=== PATIENT | male | born 1955 | race Caucasian/White ===

== ENCOUNTER 2022-12-24 16:52 | Inpatient (IN) | payer MEDICARE, MEDICAID ==
[2022-12-23 23:29] VITALS: BP 119/57
[~2022-12-24] VITALS: Ht 165.1 cm; Wt 124.7 kg
[2022-12-24] MEDS ORDERED: cefTRIAXone 1,000 MG in DEXT 5% MINI-BAG PLUS 50 ML IV ONE (17:00)
[2022-12-24 17:01] VITALS: BP 143/76
[2022-12-24 17:10] VITALS: BP 143/76
[2022-12-24] MEDS ORDERED: ATOR80TA27 PO (17:38)
[2022-12-24] MEDS ORDERED: ALLO100T21 PO (17:38)
[2022-12-24] MEDS ORDERED: FURO-570 PO (17:38)
[2022-12-24] MEDS ORDERED: SEVE800T6 PO (17:38)
[2022-12-24] MEDS ORDERED: MECL-303 PO (17:38)
[2022-12-24] MEDS ORDERED: ASPI-1749 PO (17:38)
[2022-12-24] MEDS ORDERED: EZET10TA14 PO (17:38)
[2022-12-24] MEDS ORDERED: CARV3.12 PO (17:38)
--- NOTE | 2022-12-24 19:00 | NUR ---
RN at bedside for PICC line placement.
--- NOTE | 2022-12-24 19:37 | NUR ---
RAD at bedside for imaging s/p picc line placement.
--- NOTE | 2022-12-24 20:01 | NUR ---
Picc line report given to MD Zelaya. Placement confirmed.
[2022-12-24] MEDS ORDERED: cefTRIAXone 1,000 MG VIAL ONE (20:32)
[2022-12-24 20:38] LABS: BASOPHILS % (AUTO) 0.3 % (0.0-2.0); EOSINOPHILS # (AUTO) 0.2 K/uL (0-0.4); EOSINOPHILS % (AUTO) 2.4 % (0.0-4.0); HEMATOCRIT 31.4 % (36-52); LYMPHOCYTES # (AUTO) 0.3 K/uL (2.0-11.5); LYMPHOCYTES % (AUTO) 3.1 % (20.5-51.1); MEAN CORPUSCULAR HEMOGLOBIN 30 pg (27-31); MEAN CORPUSCULAR HGB CONC 32 g/dL (33-37); MEAN CORPUSCULAR VOLUME 92.6 fL (80-94); MONOCYTES # (AUTO) 0.6 K/uL (0.8-1.0); MONOCYTES % (AUTO) 5.4 % (1.7-9.3); NEUTROPHILS # (AUTO) 9.1 K/uL (1.8-7.7); NEUTROPHILS % (AUTO) 88.8 % (42.2-75.2); PLATELET COUNT (AUTO) 242 K/uL (140-450); RED BLOOD CELL COUNT(AUTO) 3.39 MIL/uL (4.20-6.10); RED CELL DISTRIBUTION WIDTH 17.9 % (11.6-13.7); WHITE BLOOD COUNT (AUTO) 10.2 K/uL (4.8-10.8)
[2022-12-24 20:53] LABS: ALBUMIN 2.5 g/dL (3.4-5.0); ANION GAP 12.7 (8-16); CARBON DIOXIDE 25.1 mmol/L (21-32); TOTAL BILIRUBIN 0.4 mg/dL (0.0-1.0)
--- NOTE | 2022-12-24 20:53 | NUR ---
MD Zelaya made aware of elevated HR; to see pt.
[2022-12-24 20:59] LABS: POTASSIUM 2.8 mmol/L (3.5-5.1)
--- NOTE | 2022-12-24 21:09 | NUR ---
2100 DR CARBALLO ASKED ME TO TAKE PT OFF BIPAP. PLACED PT ON 2LNC. SATS DROPPED. PLACED PT ON 6L FACE MASK. SATS IMPROVED BUT PT STATED HE FELT SOB. DR CARBALLO SAID TO PLCE PT BACK ON BIPAP. SAME SETTINGS.
[2022-12-24 23:15] VITALS: BP 123/63
[2022-12-24] MEDS ORDERED: POTASSIUM CHLORIDE 10 MEQ TABER PO PRN (23:20)
[2022-12-24] MEDS ORDERED: ACETAMINOPHEN 325 MG TAB PO PRN (23:20)
[2022-12-24] MEDS ORDERED: ONDANSETRON 4 MG/2 ML VIAL IM/IVP PRN (23:20)
[2022-12-24] MEDS ORDERED: DOCUSATE SODIUM 100 MG GELCAP PO PRN (23:20)
[2022-12-24] MEDS ORDERED: ZOLPIDEM 5 MG TAB PO PRN (23:20)
[2022-12-24] MEDS ORDERED: guaiFENesin DM 200/20 MG-10 ML 10 ML UDC PO PRN (23:20)
[2022-12-24] MEDS ORDERED: HYDROcodone/APAP 7.5/325 MG 1 TAB PO PRN (23:20)
--- NOTE | 2022-12-24 23:26 | NUR ---
2311 TRANSPORTED PT ON BIPAP TO ROOM 118. PT IS ON IPAP 14 EPAP 7 RR 16 FIO2 45%. PT UNDERSTANDS TO KEEP MASK ON.
--- NOTE | 2022-12-24 23:29 | NUR ---
[facility] ER NURSE PER TRANSFER REPORT@ 2300 VIA PHONE. REPORTED:57 YO MALE WITH SOB DURING HEMODIALYSIS. DX: SOB AND PULMONARY EDEMA. HX: COPD, DM, HTN, KIDNEY DISEASE. ADMIT TO TELE PER MD [facility]ATE SERVICES. SINUS TACH 120'S -130'S, ASYMPTOMATIC, MD AWARE. BIPAP WITH ATTEMPT TO TRANSFER TO NASAL CANNULA 6L. PT DESATTED AND SOB. BIPAP MAINTAINED. SETTINGS: RATE 16, FI02 45, IPAP 14, EPAP 7. HD SATURDAY AND SATURDAY WITH RIGHT UPPER CHEST ACCESS. LASHONDA PICC PLACED, CONFIRMED AND SL. K=2.8 AND 1ST TROPONIN=25 AND 2ND TROP PENDING, AWARE. SKIN INTACT. NON PITTING EDEMA 2+ BILAT LOWER EXTREMITIES. DENIES PAIN. RECEIVED AT THIS TIME VIA GURNEY FROM ER WITH RESPIRATORY ACCOMPANYING ER TRANSPORT, BIPAP MAINTAINED. VS 97.1-65-20-119/57 98% ON BIPAP. PT RECEIVED REPORTED. RELAXED, A/0X4. "CAN SOMEONE LET MY KNOW I AM HERE." VERIFIED ALLERGIES, LATEX AND NSAIDS. CONT TO MONITOR.
--- NOTE | 2022-12-24 23:29 | NUR ---
BED HAS NO WORKING SCALE Addendum: 12/25/22 at 0737 by Agency 08 RN RN Amended: Links added.
[2022-12-24 23:47] LABS: PROTHROMBIN TIME 10.8 secs (10.8-13.4)
[2022-12-25 00:13] LABS: CHOL/HDL RATIO 1.3 (1-4.5); MAGNESIUM 1.9 mg/dL (1.8-2.4)
[2022-12-25 00:14] LABS: FREE T4 (FREE THYROXINE) 1.18 ng/dL (0.76-1.46); THYROID STIMULATING HORMONE 2.78 uIU/mL (0.34-3.74)
--- NOTE | 2022-12-25 01:30 | NUR ---
NOTIFIED OF CARDIAC RHYTHM CHANGE FROM ST TO UNCONTROLLED AFIB/AFLUTTER 107/120'S. REMAINS ASYMPTOMATIC. MRSA SCREEN COLLECTED. PHONED AND SPOKE WITH PT UPON ARRIVAL TO FLOOR.
[2022-12-25 04:00] VITALS: BP 128/62
--- NOTE | 2022-12-25 07:30 | NUR ---
HAND-OFF REPORT TO GREGORY READ AM ON-COMING NURSE FOR CONTINUITY OF CARE. PT REMAINS SAME. ON BIPAP WITH NO CHANGE IN SETTINGS. TOLERATING WELL. CONTINUES UNCONTROLLED AFIB/AFLUTTER ON TEAMSITE DEVELOPER, ASYMPTOMATIC. NO RESPIRATORY DISTRESS. CONTINUES TO DENY PAIN OR ANY DISCOMFORT. LASHONDA PICC LINE DOUBLE LUMEN PATENT WITH A.M LABS BLOOD DRAW TAKEN FROM LINE. RELINQUISHED CARE OF PT AT THIS TIME.
--- NOTE | 2022-12-25 07:31 | NUR ---
RECEIVED REPORT FROM NIGHTSHIFT NURSE. PT IS ASLEEP IN BED, WOKE TO NAME AND TOUCH. NO SIGNS OF DISTRESS, NO REPORTS OF PAIN/DISCOMFORT. PT ON BIPAP. DOUBLE LUMEN PICC LINE TO RIGHT UPPER ARM, DIALYSIS CATH IN RIGHT UPPER CHEST, BOTH CLEAN AND INTACT. NO FURTHER NEEDS ARE TO BE MET AT THIS TIME, WILL CONTINUE WITH PATIENT CARE. REORIENTED PT TO CALL LIGHT. BED IN LOWEST POSITION, 2 SIDE RAILS UP, CALL LIGHT PLACED WITHIN REACH.
[2022-12-25 07:35] LABS: EOSINOPHILS # (AUTO) 0.3 K/uL (0-0.4); HEMOGLOBIN 9.2 g/dL (12.0-18.0); LYMPHOCYTES # (AUTO) 1.3 K/uL (2.0-11.5); LYMPHOCYTES % (AUTO) 7.9 % (20.5-51.1); MEAN CORPUSCULAR HEMOGLOBIN 30 pg (27-31); RED BLOOD CELL COUNT(AUTO) 3.08 MIL/uL (4.20-6.10); RED CELL DISTRIBUTION WIDTH 17.6 % (11.6-13.7)
[2022-12-25 07:43] LABS: BASOPHILS % (AUTO) 0.2 % (0.0-2.0); EOSINOPHILS % (AUTO) 1.9 % (0.0-4.0); HEMATOCRIT 28.8 % (36-52); MEAN CORPUSCULAR HGB CONC 32 g/dL (33-37); MEAN CORPUSCULAR VOLUME 93.6 fL (80-94); MONOCYTES # (AUTO) 1.7 K/uL (0.8-1.0); MONOCYTES % (AUTO) 10.2 % (1.7-9.3); NEUTROPHILS # (AUTO) 13.5 K/uL (1.8-7.7); NEUTROPHILS % (AUTO) 79.8 % (42.2-75.2); PLATELET COUNT (AUTO) 237 K/uL (140-450); WHITE BLOOD COUNT (AUTO) 16.9 K/uL (4.8-10.8)
[2022-12-25 08:00] VITALS: BP 105/45
[2022-12-25 08:04] LABS: ANION GAP 14.6 (8-16); CARBON DIOXIDE 23.5 mmol/L (21-32); CREATININE 3.3 mg/dL (0.6-1.3); POTASSIUM 4.1 mmol/L (3.5-5.1)
--- NOTE | 2022-12-25 09:04 | NUR ---
PATIENT HAS BEEN SCREENED AND CATEGORIZED MODERATE NUTRITION RISK. PATIENT WILL BE SEEN WITHIN 3-5 DAYS OF ADMISSION. 12/28/22-12/30/[address] Addendum: 12/25/22 at [address] [facility] CONSULT RECEIVED ON 12/25/22 FOR UNCONTROLLED DIABETES, RENAL DIET . CONSULT DOES NOT MEET HIGH RISK CRITERIA PER HOSPITAL POLICY. PT WILL BE SEEN AND ASSESSED ACCORDING TO THE NUTRITION CARE POLICY. REVIEWED BY VILMA LAZAR RD
[2022-12-25] MEDS: PANTOPRAZOLE 40 MG TABEC PO SCH (09:29)
[2022-12-25] MEDS ORDERED: EPOETIN ALFA-EPBX 4,000 UNITS/ML VIAL IV PRN (10:45)
--- NOTE | 2022-12-25 11:35 | NUR ---
DC PLANNING ASSESSMENT COMPLETE PLEASE REFER TO ASSESSMENT FOR ADDITIONAL DETAILS TENTATIVE DC PLAN IS FOR PT TO RETURN HOME, WITH PARTNER PROVIDING TRANSPORTATION, WHEN MEDICALLY STABLE. SW SPOKE TO PT ABOUT [facility] TRANSFER, HOWEVER, REPORTED THAT CM WOULD NOTIFY HIM OF OPEN BEDS OR WHEN [facility] HAS ACCEPTED. PT VERBALIZED UNDERSTANDING AND REPORTS HE UNDERSTAND PROCESS. Addendum: 12/26/22 at 0845 by Reji BRIONES Amended: Links added.
[2022-12-25 12:00] VITALS: BP 115/56
--- NOTE | 2022-12-25 12:30 | NUR ---
OBTAINED ORDER FROM MD FOR DIALYSIS TODAY. OBTAINED CONSENT FROM PT AND MD. PT WITH DIALYSIS NURSE AT BEDSIDE. VITAL SIGNS ARE STABLE, PT STARTED DIALYSIS @ 1226. WILL CONTINUE WITH CARE.
[2022-12-25] MEDS: SODIUM PHOS / POTASSIUM PHOS 1 PKT PDR PO SCH ×2 (13:29→17:32)
--- NOTE | 2022-12-25 15:30 | NUR ---
PT DONE WITH DIALYSIS, 2.1L OUT. PT VITALS STABLE, REPORTS FEELING BETTER. RT WILL BE CONTACTED TO ASSESS PT BREATHING IN HOPES TO CHANGE PT FROM BIPAP TO CPAP OR HIGHFLOW O2.
[2022-12-25 16:00] VITALS: BP 130/59
--- NOTE | 2022-12-25 16:25 | NUR ---
RN CALLED STATED PT IS REQUESTING TO COME OFF BIPAP HE GOT DIALYSIS AND FEELS BETTER. RT ASSESSED PT AND PUT PT ON 6L GREEN BUBBLER NC. HE IS HAVING NO DISTRESS NOTED. HR 87 SPO2 95%. WILL CONTINUE TO MONITOR AND PT IS REQUESTING TO USE CPAP AT NIGHT LIKE HE DOES AT HOME. CPAP OF 14. HE SAYS IT IS EASIER THAN BIPAP. WILL GIVE DURING REPORT.
--- NOTE | 2022-12-25 19:00 | NUR ---
PT CHANGED FROM BIPAP TO NC @1530 WITH RT. ENDORSED PT TO NIGHTSHIFT NURSE FOR CONTINUITY OF CARE. PT IS AWAKE, STABLE, NO SIGNS OF DISTRESS, NO REPORTS OF PAIN. AT BEDSIDE. NO FURTHER NEEDS ARE TO BE MET AT THIS TIME. BED IN LOWEST POSITION, 2 SIDE RAILS UP, CALL LIGHT PLACED WITHIN REACH.
--- NOTE | 2022-12-25 19:10 | NUR ---
RECEIVED PT FROM MORNING SHIFT NURSE. PT IS AOX4, AMBULATORY WITH WALKER AND ASSIST, ABLE TO VERBALIZE NEEDS AND ABLE TO FOLLOW COMMANDS. PT HAS 6L NC AND ON REGULAR DIET. PT HAS PIC LINE ON RIGHT UPPER ARM DOUBLE LUMEN SALINE LOCK AND PT HAS DIALYSIS ACCESS ON RIGHT UPPER CHEST. PT SKIN IS INTACT. NO COMPLAIN OF PAIN AT THIS TIME ON S/S OF RESPIRATORY DISTRESS NOTED. ALL SAFETY PRECAUTION IMPLEMENTED. BED IN LOW POSITION, BED WHEELS ON LOCK AND CALL LIGHT WITHIN REACH.
[2022-12-25 20:00] VITALS: BP 106/67
--- NOTE | 2022-12-25 20:26 | NUR ---
SCHEDULED AND PRESCRIBED MEDICATION WAS GIVEN TO PT PER MD ORDER. ALL SAFETY PRECAUTION IMPLEMENTED. BED IN LOW POSITION, BED WHEELS ON LOCK AND CALL LIGHT WITHIN REACH.
--- NOTE | 2022-12-25 22:19 | NUR ---
CALLED RT PER PT REQUEST.
--- NOTE | 2022-12-25 22:20 | NUR ---
PLACED ON CPAP PER PT REQUEST, PT STATES HE USES A CPAP OF 14 AT HOME AT NIGHT. PT IS ON CPAP OF 14 AND 45% FIO2. NO DISTRESS NOTED, SPO2 99%, WILL CONTINUE TO MONITOR.
[2022-12-26] VITALS: BP 103/46
--- NOTE | 2022-12-26 | NUR ---
PT IS ON SLEEP. CHEST RISE AND FALL SYMMETRICALLY NOTED. RESPIRATION IS EVEN AND UNLABORED. ALL SAFETY AND SEIZURE PRECAUTION IMPLEMENTED. BED IN LOW POSITION, BED WHEELS ON LOCK AND CALL LIGHT WITHIN REACH.
--- NOTE | 2022-12-26 02:00 | NUR ---
CHECKED THE PT, STILL ON SLEEP. CHEST RISE AND FALL SYMMETRICALLY NOTED. RESPIRATION IS EVEN AND UNLABORED. ALL SAFETY PRECAUTION IMPLEMENTED. BED IN LOW POSITION, BED WHEELS ON LOCK AND CALL LIGHT WITHIN REACH.
[2022-12-26 04:00] VITALS: BP 103/46
--- NOTE | 2022-12-26 04:00 | NUR ---
PT WAS GIVEN WARM BLANKET PER PT REQUEST. PT DENIES PAIN. NO S/S OF RESPIRATORY DISTRESS NOTED. ALL SAFETY MEASURES IMPLEMENTED. BED IN LOW POSITION, BED WHEELS ON LOCK AND CALL LIGHT WITHIN REACH.
[2022-12-26 07:15] LABS: BASOPHILS # (AUTO) 0.1 K/uL (0.00-0.22); BASOPHILS % (AUTO) 0.6 % (0.0-2.0); EOSINOPHILS # (AUTO) 0.5 K/uL (0-0.4); EOSINOPHILS % (AUTO) 4.3 % (0.0-4.0); HEMATOCRIT 27.6 % (36-52); HEMOGLOBIN 8.9 g/dL (12.0-18.0); LYMPHOCYTES # (AUTO) 1.2 K/uL (2.0-11.5); LYMPHOCYTES % (AUTO) 11.5 % (20.5-51.1); MEAN CORPUSCULAR HEMOGLOBIN 30 pg (27-31); MEAN CORPUSCULAR HGB CONC 32 g/dL (33-37); MEAN CORPUSCULAR VOLUME 93.4 fL (80-94); MONOCYTES # (AUTO) 1.1 K/uL (0.8-1.0); MONOCYTES % (AUTO) 10.8 % (1.7-9.3); NEUTROPHILS # (AUTO) 7.7 K/uL (1.8-7.7); NEUTROPHILS % (AUTO) 72.8 % (42.2-75.2); PLATELET COUNT (AUTO) 263 K/uL (140-450); RED BLOOD CELL COUNT(AUTO) 2.95 MIL/uL (4.20-6.10); RED CELL DISTRIBUTION WIDTH 18.1 % (11.6-13.7); WHITE BLOOD COUNT (AUTO) 10.6 K/uL (4.8-10.8)
[2022-12-26 07:23] LABS: ANION GAP 13.3 (8-16); CARBON DIOXIDE 23.7 mmol/L (21-32); CREATININE 3.6 mg/dL (0.6-1.3)
--- NOTE | 2022-12-26 07:27 | NUR ---
PT IS STABLE. ENDORSED PT TO MORNING SHIFT NURSE FOR CONTINUITY OF CARE.
--- NOTE | 2022-12-26 07:28 | NUR ---
RECEIVED REPORT FROM FINISH FILER NURSE. PATIENT LYING DOWN IN BED, ON CPAP MACHINE, SLEEPING, AROUSABLE BY VOICE. NO DISTRESS NOTED. LASHONDA PICC LINE INTACT, ON SALINE LOCK. SKIN INTACT. REVIEWED PLAN OF CARE WITH PATIENT. VERBALIZED UNDERSTANDING. SAFETY MEASURES IN PLACE, CALL LIGHT WITHIN REACH. WILL CONTINUE TO MONITOR.
[2022-12-26 08:00] VITALS: BP 125/50
[2022-12-26 08:08] LABS: T4 (THYROXINE) 7.5 ug/dL (4.5-12.0)
[2022-12-26] MEDS ORDERED: DEXTROSE 50% 50 ML SYR IVP PRN (08:15)
--- NOTE | 2022-12-26 08:25 | NUR ---
REMOVED FROM CPAP TO MASK AND PLACED ON SUPPLEMENTAL OXYGEN AT 6 LPM VIA NC BY PRINCESS/TEDDY READ
[2022-12-26] MEDS ORDERED: INSU500S1 SQ ×2 (08:34)
[2022-12-26] MEDS ORDERED: FUROSEMIDE 40 MG/5 ML ORAL SOL UDC GT SCH (09:00)
[2022-12-26] MEDS ORDERED: FUROSEMIDE 40 MG TAB PO SCH (09:00)
[2022-12-26] MEDS: PANTOPRAZOLE 40 MG TABEC PO SCH (09:47)
[2022-12-26] MEDS: ECOTRIN 81 MG TABEC PO SCH (09:48)
[2022-12-26] MEDS: SODIUM PHOS / POTASSIUM PHOS 1 PKT PDR PO SCH ×3 (09:48→17:44)
[2022-12-26] MEDS: ATORVASTATIN 80 MG TAB PO SCH (09:48)
--- NOTE | 2022-12-26 09:48 | NUR ---
RECEIVED ON SUPPLEMENTAL OXYGEN AT 6 LPM VIA CURAPLEX NC/BUBBLE HUMIDIFIER SATURATION 100%; TITRATED FIO2 TO 4 LPM; PRINCESS/TEDDY RN AT BEDSIDE AND AWARE; MEETING MANAGER TO MONITOR AND TITRATED FIO2 TOLERATED
[2022-12-26] MEDS: FUROSEMIDE 40 MG TAB PO SCH ×2 (09:50→17:43)
--- NOTE | 2022-12-26 09:59 | NUR ---
SCHEDULED MEDS GIVEN. WILL CONTINUE TO MONITOR.
[2022-12-26] MEDS ORDERED: INSULIN LANTUS 100 UNITS/ML 10 ML VIAL SUBQ SCH ×2 (10:00→13:02)
[2022-12-26] MEDS: BLOOD GLUCOSE MONITORING 1 DEV DEV FS SCH ×3 (11:30→21:00)
[2022-12-26 12:00] VITALS: BP 126/69
[2022-12-26] MEDS: INSULIN LISPRO SLIDING SCALE 100 UNITS/ML VIAL SUBQ PRN ×2 (13:29→17:45)
--- NOTE | 2022-12-26 13:31 | NUR ---
SCHEDULED MEDICATIONS DUE GIVEN. WILL CONTINUE TO MONITOR.
--- NOTE | 2022-12-26 13:37 | NUR ---
GLUCOSE 409, LANTUS 10 UNITS, LISPRO [address] PATE ORDERS.
--- NOTE | 2022-12-26 13:43 | NUR ---
DC PLANNING: CM CALLED [facility] [phone] SPOKE WITH EDDIE STATED THEY RECEIVED THE ORDER FOR STABLE FOR TRANSFER AND GREGORY IS THE CM CURRENTLY WORKING ON TRANSFERRING TO [facility]. CM TO FOLLOW
[2022-12-26 16:00] VITALS: BP 130/59
[2022-12-26] MEDS ORDERED: ALTEPLASE 2 MG VIAL MC SCH (17:30)
--- NOTE | 2022-12-26 17:53 | NUR ---
SCHEDULED MEDICATIONS DUE GIVEN. WILL CONTINUE TO MONITOR.
--- NOTE | 2022-12-26 18:00 | NUR ---
HD NURSE AT BEDSIDE, SAYS "RIGHT TUNNEL CATHETER IS CLOGGED." HD NURSE TALKED TO DR. JACKSON, PER MD GIVE CATH FLOW X2 TO EACH LUMEN CATHETER. CATH FLOW GIVEN PER MD ORDER. HD NURSE WILL COME BACK TOMORROW TO REASSESS THE HD SITE.
[2022-12-26 20:00] VITALS: BP 163/80
--- NOTE | 2022-12-26 20:15 | NUR ---
NURSING PM NARRATIVE (OPENING) 1929 HAND-OFF REPORT RECEIVED FROM PRINCESS LOVE. ENDORSED: NO HD TODAY. CATHETER CLOGGED. ALTEPASE GIVEN BY HD NURSE. TRY AGAIN TO ACCESS TOMORROW. PT RECEIVED RESTINIG IN BED WITHOUT C/O. O2 6L/NC AND MAY HAVE CPAP AT NIGHT PRN. POSS D/C TOMORROW. KAYDEN PT. PLAN: MEDS SCHEDULED AND COMFORT MEASURES.
[2022-12-27] VITALS (8 sets, daily range): BP systolic 119–163; BP diastolic 57–98
[2022-12-27] MEDS: INSULIN LISPRO SLIDING SCALE 100 UNITS/ML VIAL SUBQ PRN ×5 (00:30→20:09)
[2022-12-27 01:38] LABS: APPEARANCE,URINE CLEAR (CLEAR); BILIRUBIN,URINE 1+ (NEGATIVE); BLOOD, URINE NEGATIVE (NEGATIVE); COLOR,URINE YELLOW (YELLOW); LEUKOCYTE ESTERASE ,URINE NEGATIVE (NEGATIVE); NITRITE, URINE NEGATIVE (NEGATIVE); UGLUCOSE 1+ (NEGATIVE)
[2022-12-27 02:43] LABS: BARBITURATE, URINE NEGATIVE ng/ml (NEG <=200); BENZODIAZEPINE, URINE NEGATIVE ng/mL (NEG <=200); CANNABINOID, URINE NEGATIVE ng/mL (NEG <=50); COCAINE, URINE NEGATIVE ng/mL (NEG <=300); OPIATE, URINE POSITIVE ng/mL (NEG <=2000); PHENCYCLIDINE SCREEN,URINE NEGATIVE ng/mL (NEG <=25)
[2022-12-27 07:10] LABS: BASOPHILS # (AUTO) 0.1 K/uL (0.00-0.22); BASOPHILS % (AUTO) 0.5 % (0.0-2.0); EOSINOPHILS # (AUTO) 0.4 K/uL (0-0.4); EOSINOPHILS % (AUTO) 4.2 % (0.0-4.0); HEMATOCRIT 26.8 % (36-52); HEMOGLOBIN 8.8 g/dL (12.0-18.0); LYMPHOCYTES # (AUTO) 1.2 K/uL (2.0-11.5); LYMPHOCYTES % (AUTO) 11.5 % (20.5-51.1); MEAN CORPUSCULAR HEMOGLOBIN 30 pg (27-31); MEAN CORPUSCULAR HGB CONC 33 g/dL (33-37); MEAN CORPUSCULAR VOLUME 91.7 fL (80-94); MONOCYTES # (AUTO) 0.9 K/uL (0.8-1.0); MONOCYTES % (AUTO) 9.4 % (1.7-9.3); NEUTROPHILS # (AUTO) 7.5 K/uL (1.8-7.7); NEUTROPHILS % (AUTO) 74.4 % (42.2-75.2); PLATELET COUNT (AUTO) 269 K/uL (140-450); RED BLOOD CELL COUNT(AUTO) 2.92 MIL/uL (4.20-6.10); RED CELL DISTRIBUTION WIDTH 17.7 % (11.6-13.7)
[2022-12-27 07:28] LABS: ANION GAP 14.8 (8-16); CARBON DIOXIDE 22.9 mmol/L (21-32); CREATININE 3.8 mg/dL (0.6-1.3); POTASSIUM 3.7 mmol/L (3.5-5.1)
--- NOTE | 2022-12-27 07:30 | NUR ---
0730 PM NURSING NARRATIVE (CLOSING) HAND-OFF REPORT TO VAMSI READ ON-COMING NURSE FOR CONTINUITY OF CARE AND BEDSIDE ROUNDS FOLLOWING WITH INTRODUCTION OF NEW NURSE TO PT. PT CONTINUES WITH BIPAP MASK ON. ENDORSED: CARDIAC RHYTHM CONVERTED BACK TO ATRIAL FLUTTER FROM ST/SR @ APPROX 0600. ENDORSED ALTEPASE GIVEN YESTERDAY @ 1730 FOR CLOTTED HD ACCESS CATHETER TO RIGHT CHEST. WILL ATTEMPT DIALYSIS AGAIN TODAY PENDING EFFECTIVENESS OF CLOT BLASTER. ASYMPTOMATIC ON BIPAP. POSSIBLE D/C TODAY. PT IS A [place] PT. PT CONTINUES IN NO ACUTE DISTRESS. RESTING. RELINQUISHED CARE OF PT.
--- NOTE | 2022-12-27 07:30 | NUR ---
RECEIVED REPORT FORM NIGHT NURSE MARTITA RN FOR CONTINUITY OF CARE. INITIAL ASSESSMENT DONE. ALERT AND OIRENTED X 4. RESP. EVEN AND UNLABORED. ON CONT. O2 @ 6L/NC. PICC LINE INTACT TO LASHONDA. HEMODIALYSIS INTACT TO RT CHEST TUNNEL CATHETER. NOT IN ANY DISTRESS NOTED. CALL LIGHT KEPT WITHIN REACH. WILL CONTINUE TO MONITOR.
--- NOTE | 2022-12-27 07:40 | NUR ---
RN CALLED STATED PT TOOK OFF CPAP AND IS ON 4LNC . SATING 96%. WILL CONTINUE TO MONITOR. NO DISTRESS.
[2022-12-27] MEDS: BLOOD GLUCOSE MONITORING 1 DEV DEV FS SCH ×4 (07:46→20:08)
[2022-12-27] MEDS ORDERED: INSULIN LANTUS 100 UNITS/ML 10 ML VIAL SUBQ SCH ×2 (09:00)
[2022-12-27] MEDS: PANTOPRAZOLE 40 MG TABEC PO SCH (09:13)
[2022-12-27] MEDS: ECOTRIN 81 MG TABEC PO SCH (09:13)
[2022-12-27] MEDS: ATORVASTATIN 80 MG TAB PO SCH (09:13)
[2022-12-27] MEDS: FUROSEMIDE 40 MG TAB PO SCH ×2 (09:14→17:18)
[2022-12-27] MEDS: SODIUM PHOS / POTASSIUM PHOS 1 PKT PDR PO SCH (09:14)
--- NOTE | 2022-12-27 09:14 | NUR ---
SCHEDULED MEDICATIONS GIVEN. TOLERATING WELL.
--- NOTE | 2022-12-27 09:53 | NUR ---
RECEIVED CALLED FORM KAYDEN SPOKE TO GREGORY, ALL QUESTIONS ANSWERED.
--- NOTE | 2022-12-27 12:04 | NUR ---
BS CHECKED 235. INSULIN WAS GIVEN PER SLIDING SCALE.
--- NOTE | 2022-12-27 12:30 | NUR ---
HEMODIALYSIS COMPLETED. 2,500 ML REMOVED.
--- NOTE | 2022-12-27 14:28 | NUR ---
12/27/22 RD INITIAL ASSESSMENT COMPLETED PLEASE REFER TO NUTRITION ASSESSMENT UNDER CARE ACTIVITY FOR ESTIMATED NUTRITIONAL NEEDS. 1. CONTINUE [id number], RENAL DIET TOLERATED 2. PROVIDED NUTRITION EDUCATION AND HANDOUTS FOR CARB COUNTING AND RENAL DIET 3. RD TO FOLLOW-UP 7 DAYS, LOW RISK REVIEWED BY LOUISA LEBLANC RD
--- NOTE | 2022-12-27 17:15 | NUR ---
BS CHECKED 295. INSULIN WAS GIVEN PER SLIDING SCALE.
--- NOTE | 2022-12-27 19:00 | NUR ---
REPORT GIVEN TO NIGHT NURSE ML FOR CONTINUITY OF CARE. REMAINS STABLE.
--- NOTE | 2022-12-27 19:15 | NUR ---
RECEIVED PT SITTING ON A CHAIR. AWAKE, ALERT AND ORIENTED X 4 DENIES PAIN. NO ACUTE RESPIRATORY DISTRESS. SKIN WARM AND DRY TO TOUCH. SAFETY PRECAUTIONS IN PLACE, CALL LIGHT IN REACH.
--- NOTE | 2022-12-27 20:45 | NUR ---
[facility] CALLED PT WILL BE PICKED UP [id number] PT GOING TO 530 TELE.
--- NOTE | 2022-12-27 20:52 | NUR ---
REPORT GIVEN TO ALANNA [place]AV[place]. PT GOING TO RM 530 TELE.
--- NOTE | 2022-12-27 21:35 | NUR ---
PER PT HE SPOKE WITH DEDRA, SIGNIFICANT OTHER OF HIS TRANSFER TO [place], NO NEED FOR RN TO CALL.
--- NOTE | 2022-12-27 21:55 | NUR ---
DISCHARGED PT TO [facility]. REPORT GIVEN TO PARAMEDICS. ALL BELONGINGS WITH PT. AMBULATED TO THE [facility]. PT IS STABLE. DENIES PAIN.
== END 2022-12-27 21:55 | disposition short-term general hospital (02) | DRG 291 ==
LOC: MED 16:52 → MTU 22:31
PROVIDERS: ADMIT Family Medicine; ATTEND Family Medicine
PROC: 05HY33Z Insertion of Infusion Device into Upper Vein, Percutaneous Approach (ICD-10-PCS; 2022-12-24)
PROC: 5A09357 Assistance with Respiratory Ventilation, Less than 24 Consecutive Hours, Continuous Positive Airway Pressure (ICD-10-PCS; principal; 2022-12-25)
PROC: 5A1D70Z Performance of Urinary Filtration, Intermittent, Less than 6 Hours Per Day (ICD-10-PCS; 2022-12-25)
PROC: 5A1D70Z Performance of Urinary Filtration, Intermittent, Less than 6 Hours Per Day (ICD-10-PCS; 2022-12-27)
DX: I13.2 Hypertensive heart and chronic kidney disease with heart failure and with stage 5 chronic kidney disease, or end stage renal disease (principal); I50.33 Acute on chronic diastolic (congestive) heart failure; J96.00 Acute respiratory failure, unspecified whether with hypoxia or hypercapnia; N18.6 End stage renal disease; Z68.42 Body mass index [BMI] 45.0-49.9, adult; E87.1 Hypo-osmolality and hyponatremia; I48.92 Unspecified atrial flutter; Z20.822 Contact with and (suspected) exposure to COVID-19; E87.6 Hypokalemia; D72.829 Elevated white blood cell count, unspecified; D72.0 Genetic anomalies of leukocytes; E83.51 Hypocalcemia; E83.39 Other disorders of phosphorus metabolism; E88.09 Other disorders of plasma-protein metabolism, not elsewhere classified; I48.91 Unspecified atrial fibrillation; J44.9 Chronic obstructive pulmonary disease, unspecified; E11.22 Type 2 diabetes mellitus with diabetic chronic kidney disease; M10.9 Gout, unspecified; E66.01 Morbid (severe) obesity due to excess calories; D63.1 Anemia in chronic kidney disease; I25.10 Atherosclerotic heart disease of native coronary artery without angina pectoris; E11.65 Type 2 diabetes mellitus with hyperglycemia; Z91.040 Latex allergy status; Z88.6 Allergy status to analgesic agent
CPT/HCPCS: 36415; 71045; 80048; 80053; 80305; 81003; 82150; 82948; 83036; 83605; 83690; 83735; 83880; 84100; 84436; 84439; 84443; 84479; 84484; 85025; 85610; 85730; 87040; 87081; 87086; 94660; 96365; 99285; J0696; J1644; J1815; J2997; J7060